=== PATIENT | male | born 1955 | race African-American/Black ===

== ENCOUNTER 2019-01-26 19:39 | Inpatient (IN) | payer OTHER ==
[2019-01-26 20:30] VITALS: BMI 19.1
--- NOTE | 2019-01-26 21:15 | HP ---
CIWA Score Nausea/Vomitin Muscle Tremors: 4-Moderate,w/Arms Extend Anxiety: 3 Agitation: 4-Moderately Restless Paroxysmal Sweats: 2 Orientation: 0-Oriented Tacttile Disturbances: 0-None Auditory Disturbances: 0-None Visual Disturbances: 0-None Headache: 3-Moderate CIWA-Ar Total Score: 18 - Admission Criteria OASAS Guidelines: Admission for Medically Managed Detox: Requires at least one of the followin. CIWA greater than 12 2. Seizures within the past 24 hours 3. Delirium tremens within the past 24 hours 4. Hallucinations within the past 24 hours 5. Acute intervention needed for co occurring medical disorder 6. Acute intervention needed for co occurring psychiatric disorder 7. Severe withdrawal that cannot be handled at a lower level of care (continued vomiting, continued diarrhea, abnormal vital signs) requiring intravenous medication and/or fluids 8. Admission ROS [facility] - [facility] Chief Complaint: Alcohol withdrawal symptoms Allergies/Adverse Reactions: Allergies Allergy/AdvReac Type Severity Reaction Status Date / Time bee venom protein (honey bee) Allergy Verified 01/26/19 20:17 History of Present Illness: 63 years old male with a long history of alcohol dependence (since age 18 years ) is seeking admission to detox. Patient has been in multiple detox facilities and reports that [facility] was where he was treated last. This is his first admission to [facility] detox. Patient reports that he is unemployed and homeless but spend timeat a friend's apartment. He reports history of hypothyroidism, Glaucoma and depression. He reports suicide attempt at age 15 years and denies suicidal ideation at his time. Exam Limitations: No Limitations - Ebola screening Have you traveled outside of the country in the last 21 days: No (N) Have you had contact with anyone from an Ebola affected area: No Do you have a fever: No - Review of Systems Constitutional: Chills, Malaise, Night Sweats, Changes in sleep EENT: reports: Blurred Vision Respiratory: reports: No Symptoms reported Cardiac: reports: No Symptoms Reported GI: reports: Poor Appetite, Poor Fluid Intake, Abdominal cramping : reports: No Symptoms Reported Musculoskeletal: reports: Back Pain Integumentary: reports: Dryness, Flushing Neuro: reports: Tingling, Tremors Endocrine: reports: No Symptoms Reported Hematology: reports: No Symptoms Reported Psychiatric: reports: No Sypmtoms Reported, Mood/Affect Appropiate, Orientated x3, Anxious, Depressed Other Systems: Reviewed and Negative Patient History - Patient Medical History Hx Anemia: No Hx Asthma: No Hx Chronic Obstructive Pulmonary Disease (COPD): No Hx Cardiac Disorders: No Hx Congestive Heart Failure: No Hx Hypertension: No Hx Hypercholesterolemia: No Hx Pacemaker: No HX Cerebrovascular Accident: No Hx Seizures: No Hx Dementia: No Hx Diabetes: No Hx Gastrointestinal Disorders: No Hx Liver Disease: No Hx Genitourinary Disorders: No Hx Renal Disease (ESRD): No Hx Thyroid Disease: Yes (Levothyroidism) Hx Human Immunodeficiency Virus (HIV): No (Negative 2018) Hx Hepatitis C: No Hx Depression: Yes (Not on medication) Hx Suicide Attempt: No (Denies suicidal ideation at tis time) Hx Bipolar Disorder: No Hx Schizophrenia: No - Patient Surgical History Past Surgical History: Yes Hx Lung Surgery: Yes Other Surgical History: RIGHT EYE, RIGHT LEG - PPD History Previous Implant?: Yes Documented Results: Negative w/o proof Implanted On Prior [facility] Admission?: No PPD to be Administered?: Yes - Reproductive History Patient is a Female of Child Bearing Age (11 -55 yrs old): No (male) - Smoking Cessation Smoking history: Current every day smoker Have you smoked in the past 12 months: Yes Aproximately how many cigarettes per day: 5 Hx Chewing Tobacco Use: No Initiated information on smoking cessation: Yes 'Breaking Loose' booklet given: 01/26/19 - Substance & Tx. History Hx Alcohol Use: Yes Hx Substance Use: Yes Substance Use Type: Alcohol, Cocaine, Marijuana Hx Substance Use Treatment: Yes (Pep[facility] CARRILLO) - Substances abused Alcohol Substance route: Oral Frequency: Daily Amount used: 1 pint of liquor(gin,rum,keira) Age of first use: 17 Date of last use: 01/26/19 Crack Substance route: Smoking Frequency: Daily Amount used: 50$-$400 Age of first use: 40 Date of last use: 01/26/19 Heroin Substance route: Smoking Frequency: 1-2 times per week Amount used: 1/2 bag Age of first use: 43 Date of last use: 01/23/19 Admission Physical Exam [facility] - Vital Signs Vital Signs: Vital Signs - 24 hr 01/26/19 20:18 Temperature 97.6 F Pulse Rate 96 H Respiratory 16 Rate Blood Pressure 139/77 - Physical General Appearance: Yes: Moderate Distress, Irritable, Sweating, Anxious HEENTM: Yes: Normal ENT Inspection, JOVANI Respiratory: Yes: Lungs Clear, Normal Breath Sounds, No Respiratory Distress Neck: Yes: Supple Breast: Yes: Breast Exam Deferred Cardiology: Yes: Tachycardia Abdominal: Yes: Normal Bowel Sounds Genitourinary: Yes: Within Normal Limits Back: Yes: Normal Inspection Musculoskeletal: Yes: Back pain, Muscle Pain Extremities: Yes: Tremors Neurological: Yes: Within Normal Limits, Alert, Normal Mood/Affect Integumentary: Yes: Warm Lymphatic: Yes: Within Normal Limits - Diagnostic (1) Hypothyroid Current Visit: Yes Status: Chronic (2) Glaucoma Current Visit: Yes Status: Chronic Qualifiers: Laterality: right (3) Depression Current Visit: Yes Status: Chronic Qualifiers: Depression Type: unspecified Qualified Code(s): F32.9 - Major depressive disorder, single episode, unspecified (4) Nicotine dependence Current Visit: Yes Status: Chronic Qualifiers: Nicotine product type: cigarettes Substance use status: uncomplicated Qualified Code(s): F17.210 - Nicotine dependence, cigarettes, uncomplicated (5) Opioid dependence with withdrawal Current Visit: Yes Status: Acute (6) Cocaine dependence Current Visit: Yes Status: Chronic (7) Cannabis dependence Current Visit: Yes Status: Chronic (8) Alcohol dependence with withdrawal, uncomplicated Current Visit: Yes Status: Acute Cleared for Admission S - Detox or Rehab [facility] Level of Care: Medically Managed Detox Regimen/Protocol: Librium Breathalyzer - Breathalyzer Breathalyzer: 0 Urine Drug Screen - Test Device Lot number: [id number] Expiration date: 09/14/20 - Control Is test valid?: Yes - Results Drug screen NEGATIVE: No Urine drug screen results: THC-Marijuana, ZENOBIA-Cocaine Inpatient Rehab Admission - Rehab Decision to Admit Inpatient rehab admission?: No
[2019-01-26] MEDS ORDERED: METHOCARBAMOL 500 MG TABLET PO PRN (21:28)
[2019-01-26] MEDS ORDERED: MELATONIN 5 MG TABLETS PO PRN (21:28)
[2019-01-26] MEDS ORDERED: hydrOXYzine PAMOATE 25 MG CAPSULE (FP) PO PRN (21:28)
[2019-01-26] MEDS ORDERED: MAG HYDROX/AL HYDROX/SIMETH 30 ML UNIT-DOSE CUP PO PRN (21:28)
[2019-01-26] MEDS ORDERED: BISMUTH SUBSALICYLATE 524 MG/30 ML UD PO PRN (21:28)
[2019-01-26] MEDS ORDERED: NICOTINE POLACRILEX 2 MG GUM BUC PRN (21:28)
[2019-01-26] MEDS ORDERED: MENTHOL/PHENOL 1 EACH UD MM PRN (21:28)
[2019-01-26] MEDS ORDERED: ACETAMINOPHEN 325 MG TABLET (FP) PO PRN ×2 (21:28)
[2019-01-26] MEDS ORDERED: IBUPROFEN 400 MG TABLET (FP) PO PRN (21:28)
[2019-01-26] MEDS ORDERED: chlordiazePOXIDE HCL 10 MG CAPSULE PO PRN (21:28)
[2019-01-26] MEDS ORDERED: MAGNESIUM CITRATE 300 ML BOTTLE PO PRN (21:28)
[2019-01-26] MEDS ORDERED: MAGNESIUM HYDROX 2400MG/30ML ORAL SUSPENSION 30 ML CUP PO PRN (21:28)
[2019-01-26] MEDS: chlordiazePOXIDE HCL 25 MG CAPSULE PO SCH (22:22)
[2019-01-26] MEDS: THIAMINE HCL 100 MG TABLET (FP) PO SCH (22:23)
[2019-01-27] MEDS: chlordiazePOXIDE HCL 25 MG CAPSULE PO SCH ×3 (06:31→23:13)
--- NOTE | 2019-01-27 08:39 | EKG ---
Test Reason : Blood Pressure : / mmHG Vent. Rate : 081 BPM Atrial Rate : 081 BPM P-R Int : 154 ms QRS Dur : 090 ms QT Int : 374 ms P-R-T Axes : 077 082 073 degrees QTc Int : 434 ms SINUS RHYTHM WITH MARKED SINUS ARRHYTHMIA OTHERWISE NORMAL ECG NO PREVIOUS ECGS AVAILABLE Confirmed by Bernie Duque ([id number]) on 01/27/2019 8:38:50 AM Referred By: Eleno Prajapati Confirmed By:Bernie Duque
[2019-01-27] MEDS ORDERED: PRENATAL VITAMINS W/ FOLIC ACID TABLET (FP) PO SCH (10:00)
[2019-01-27] MEDS ORDERED: NICOTINE 14 MG/24 HOURS TOPICAL PATCH TD SCH (10:00)
[2019-01-27 10:25] LABS: HEMOGLOBIN 13.7 GM/dL (11.7-16.9); MCH 28.8 pg (25.7-33.7); MCHC 32.6 g/dl (32.0-35.9); MEAN CELL VOLUME 88.4 fl (80-96); MEAN PLT VOLUME 7.6 fl (7.5-11.1); PLATELET COUNT 408 K/MM3 (134-434); RBC 4.75 M/mm3 (4.00-5.60); RDW 16.7 % (11.9-15.9); WHITE BLOOD COUNT 5.4 K/mm3 (4.0-10.0)
[2019-01-27 10:27] LABS: ALBUMIN 3.5 g/dl (3.4-5.0); BILIRUBIN,TOTAL 0.2 mg/dL (0.2-1); BLOOD UREA NITROGEN 17.5 mg/dL (7-18); CALCIUM 9.1 mg/dL (8.5-10.1); CREATININE 1.2 mg/dL (0.55-1.3); POTASSIUM 4.3 mmol/L (3.5-5.1); TOT PROT 7.1 g/dl (6.4-8.2)
--- NOTE | 2019-01-27 13:48 | PN ---
S CIWA - CIWA Score Nausea/Vomitin-Mild Nausea/No Vomiting Muscle Tremors: 4-Moderate,w/Arms Extend Anxiety: 4-Mod. Anxious/Guarded Agitation: 4-Moderately Restless Paroxysmal Sweats: 3 Orientation: 0-Oriented Tacttile Disturbances: 0-None Auditory Disturbances: 0-None Visual Disturbances: 0-None Headache: 0-None Present CIWA-Ar Total Score: 16 BHS Progress Note (SOAP) Subjective: Headache, chills, tremor, anxious Objective: 01/27/19 13:44 Last Vital Signs Temp Pulse Resp BP Pulse Ox 97.2 F L 104 H 18 126/79 01/27/19 13:19 01/27/19 13:19 01/27/19 13:19 01/27/19 13:19 Laboratory Tests 01/27/19 01/27/19 01/27/19 07:15 07:15 07:15 WBC 5.4 RBC 4.75 Hgb 13.7 Hct 42.0 MCV 88.4 MCH 28.8 MCHC 32.6 RDW 16.7 H Plt Count 408 MPV 7.6 Sodium 141 Potassium 4.3 Chloride 108 H Carbon Dioxide 27 Anion Gap 6 L BUN 17.5 Creatinine 1.2 Est GFR (CKD-EPI)AfAm 74.14 Est GFR (CKD-EPI)NonAf 63.97 Random Glucose 113 H Calcium 9.1 Total Bilirubin 0.2 AST 24 ALT 31 Alkaline Phosphatase 83 Total Protein 7.1 Albumin 3.5 RPR Titer Nonreactive Labs reviewed: mild glucose elevation noted (denies dm/prediabetes) Assessment: 01/27/19 13:45 Withdrawal sxs Noted with mild hyperglycemia Plan: Continue detox Encouraged PO water intake Hyperglycemia: could be r/t withdrawal, encouraged abstinence, monitor glucose level periodically, follow up with PCP for monitoring
[2019-01-27] MEDS: THIAMINE HCL 100 MG TABLET (FP) PO SCH (23:13)
[2019-01-28] MEDS ORDERED: chlordiazePOXIDE 5 MG CAPSULE PO SCH (05:00)
[2019-01-28 07:12] VITALS: TEMP 97.7
[2019-01-28 09:23] VITALS: BP 130/77; PULSE 94
--- NOTE | 2019-01-28 10:41 | DS ---
[facility] Detox Discharge Summary Admission Date: 01/26/19 Discharge Date: 01/28/19 - History Present History: Alcohol Dependence, Opioid Dependence - Physical Exam Results Vital Signs: Vital Signs Temperature 97.7 F 01/28/19 09:22 Pulse Rate 94 H 01/28/19 09:22 Respiratory Rate 18 01/28/19 09:22 Blood Pressure 130/77 01/28/19 09:22 O2 Sat by Pulse Oximetry (%) Pertinent Admission Physical Exam Findings: pt states he was told to say he drinks excessively so he can be admitted. pt admitted he does not drink and he only drinks occasionally. pt refused to take any more librium medication. pt states he can go to the [facility] and they can help him with rehab. Pt will be d/c today; pt in agreement. - Treatment Hospital Course: Rehab Referral Accepted Patient has Accepted a Rehab Referral to: referral provided - Medication Discharge Medications: Ambulatory Orders NK [No Known Home Medication] 01/26/19 - Diagnosis (1) Alcohol dependence with withdrawal, uncomplicated Status: Chronic (2) Opioid dependence with withdrawal Status: Chronic (3) Cannabis dependence Status: Chronic (4) Cocaine dependence Status: Chronic Qualifiers: Substance use status: uncomplicated Qualified Code(s): F14.20 - Cocaine dependence, uncomplicated (5) Depression Status: Chronic Qualifiers: Depression Type: unspecified Qualified Code(s): F32.9 - Major depressive disorder, single episode, unspecified (6) Glaucoma Status: Chronic Qualifiers: Laterality: right (7) Hypothyroid Status: Chronic (8) Nicotine dependence Status: Chronic Qualifiers: Nicotine product type: cigarettes Substance use status: uncomplicated Qualified Code(s): F17.210 - Nicotine dependence, cigarettes, uncomplicated - AMA Did Patient Leave Against Medical Advice: No
[2019-01-29] MEDS ORDERED: chlordiazePOXIDE HCL 10 MG CAPSULE PO PRN
[2019-01-29] MEDS ORDERED: chlordiazePOXIDE HCL 10 MG CAPSULE PO SCH (05:00)
[2019-01-30] MEDS ORDERED: chlordiazePOXIDE HCL 10 MG CAPSULE PO ONE (05:00)
== END 2019-01-28 10:57 | disposition home or self-care (01) | DRG 773 ==
LOC: YASAS 19:39 → Y6N 21:33
PROVIDERS: ADMIT Allergy & Immunology; ATTEND Allergy & Immunology
PROC: HZ2ZZZZ Detoxification Services for Substance Abuse Treatment (ICD-10-PCS; principal; 2019-01-26)
DX: F11.23 Opioid dependence with withdrawal (principal); F10.230 Alcohol dependence with withdrawal, uncomplicated; F14.20 Cocaine dependence, uncomplicated; F12.20 Cannabis dependence, uncomplicated; F17.210 Nicotine dependence, cigarettes, uncomplicated; F32.9 Major depressive disorder, single episode, unspecified; E03.9 Hypothyroidism, unspecified; H40.9 Unspecified glaucoma; R73.9 Hyperglycemia, unspecified; R00.0 Tachycardia, unspecified; Z91.038 Other insect allergy status
CPT/HCPCS: 36415; 80053; 85027; 86593; 93005; 93010

== ENCOUNTER 2019-12-08 21:16 | Inpatient (IN) | payer OTHER ==
[2019-12-08] MEDS ORDERED: MENTHOL/PHENOL 1 EACH UD MM PRN (21:19)
[2019-12-08] MEDS ORDERED: ACETAMINOPHEN 325 MG TABLET (FP) PO PRN ×2 (21:19)
[2019-12-08] MEDS ORDERED: P-EPHED 60MG/TRIPROLIDI 2.5MG TABLET PO PRN (21:19)
[2019-12-08] MEDS ORDERED: MAG HYDROX/AL HYDROX/SIMETH 30 ML UNIT-DOSE CUP PO PRN (21:19)
[2019-12-08] MEDS ORDERED: ONDANSETRON *ODT* 4 MG TABLET SL PRN (21:19)
[2019-12-08] MEDS ORDERED: IBUPROFEN 400 MG TABLET (FP) PO PRN (21:19)
[2019-12-08] MEDS ORDERED: MAGNESIUM CITRATE 300 ML BOTTLE PO PRN (21:19)
[2019-12-08] MEDS ORDERED: METHOCARBAMOL 500 MG TABLET PO PRN (21:19)
[2019-12-08] MEDS ORDERED: BISMUTH SUBSALICYLATE 524 MG/30 ML UD PO PRN (21:19)
[2019-12-08] MEDS ORDERED: NICOTINE POLACRILEX 2 MG GUM BUC PRN (21:19)
[2019-12-08] MEDS ORDERED: chlordiazePOXIDE HCL 10 MG CAPSULE PO PRN (21:19)
[2019-12-08] MEDS ORDERED: MAGNESIUM HYDROX 2400MG/30ML ORAL SUSPENSION 30 ML CUP PO PRN (21:19)
[2019-12-08] MEDS ORDERED: guaiFENesin 200 MG/10 ML 10 ML UNIT-DOSE CUPS PO PRN (21:19)
[2019-12-08] MEDS ORDERED: DICYCLOMINE HCL 10 MG CAPSULE PO PRN (21:19)
--- NOTE | 2019-12-08 21:26 | HP ---
CIWA Score Nausea/Vomitin-Mild Nausea/No Vomiting Muscle Tremors: 1-None Visible, but [place] Anxiety: 4-Mod. Anxious/Guarded Agitation: 4-Moderately Restless Paroxysmal Sweats: 4-Forehead w/Sweat Beads Orientation: 1-Uncertain about Date Tacttile Disturbances: 0-None Auditory Disturbances: 0-None Visual Disturbances: 0-None Headache: 0-None Present CIWA-Ar Total Score: 15 - Admission Criteria OASAS Guidelines: Admission for Medically Managed Detox: Requires at least one of the followin. CIWA greater than 12 2. Seizures within the past 24 hours 3. Delirium tremens within the past 24 hours 4. Hallucinations within the past 24 hours 5. Acute intervention needed for co occurring medical disorder 6. Acute intervention needed for co occurring psychiatric disorder 7. Severe withdrawal that cannot be handled at a lower level of care (continued vomiting, continued diarrhea, abnormal vital signs) requiring intravenous medication and/or fluids 8. Patient presents the following: CIWA greater than 12 Admission Criteria Met: Admission criteria met Admitting History and Physical - Smoking History Smoking history: Current every day smoker Have you smoked in the past 12 months: Yes Aproximately how many cigarettes per day: 5 - Alcohol/Substance Use Hx Alcohol Use: Yes Admission ROS [facility] - HPI Chief Complaint: WANTS TO STOP DRINKING SEEKING DETOX Allergies/Adverse Reactions: Allergies Allergy/AdvReac Type Severity Reaction Status Date / Time bee venom protein (honey bee) Allergy Verified 12/08/19 21:50 History of Present Illness: hwere for alcohol detox. client is self referred. known to [facility] on [facility]29[facility]20. presents today with c/o withdrawal sx's. seeking detox. client reports daily alcohol intake. 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 client reports last drink about 1 hour ago due to feeling sick. denies any significant period of clean time in the past year. he also reports cannabis abuse and crack, cocaine abuse. homeless- [facility], unemployed, parole Exam Limitations: No Limitations - Ebola screening Have you traveled outside of the country in the last 21 days: No Have you had contact with anyone from an Ebola affected area: No Have you been sick,other than usual withdrawal symptoms: No Do you have a fever: No - Review of Systems Constitutional: Chills, Loss of Appetite, Night Sweats, Changes in sleep, Unintentional Wgt. Loss EENT: reports: Dental Problems (missing teeth), Other (glaucoma both eyes) Respiratory: reports: No Symptoms reported Cardiac: reports: No Symptoms Reported GI: reports: Nausea, Poor Appetite, Poor Fluid Intake : reports: No Symptoms Reported Musculoskeletal: reports: Joint Pain (right hip, thigh and knee pain, chronic 2/2 to old injury) Integumentary: reports: Sweating, Other (healing abrasion to r elbow) Neuro: reports: Tremors Endocrine: reports: Other (hypothyroidism) Hematology: reports: No Symptoms Reported Psychiatric: reports: Orientated x3, Anxious, Depressed (emotions) Other Systems: Reviewed and Negative Patient History - Patient Medical History Hx Anemia: No Hx Asthma: No Hx Chronic Obstructive Pulmonary Disease (COPD): No Hx Cardiac Disorders: No Hx Congestive Heart Failure: No Hx Hypertension: No Hx Hypercholesterolemia: Yes (lipitor) Hx Pacemaker: No HX Cerebrovascular Accident: No Hx Seizures: No Hx Dementia: No Hx Diabetes: No Hx Gastrointestinal Disorders: No Hx Liver Disease: No Hx Genitourinary Disorders: No Hx Sexually Transmitted Disorders: No Hx Renal Disease (ESRD): No Hx Thyroid Disease: Yes (levothyroxine) Hx Human Immunodeficiency Virus (HIV): No Hx Hepatitis C: No Hx Depression: Yes (Not on medication) Hx Suicide Attempt: No Hx Bipolar Disorder: No Hx Schizophrenia: No Other Medical History: mood swings, insomnia - Patient Surgical History Past Surgical History: Yes Hx Neurologic Surgery: No Hx Cataract Extraction: Yes Hx Cardiac Surgery: No Hx Lung Surgery: Yes Hx Breast Surgery: No Hx Breast Biopsy: No Hx Abdominal Surgery: No Hx Appendectomy: No Hx Cholecystectomy: No Hx Genitourinary Surgery: No Hx Section: No Hx Orthopedic Surgery: Yes Other Surgical History: RIGHT EYE, RIGHT LEG Anesthesia Reaction: No - PPD History Previous Implant?: Yes Documented Results: Negative w/proof Implanted On Prior R Admission?: Yes Date: 01/28/19 Results: s/o ama PPD to be Administered?: Yes - Smoking Cessation Smoking history: Current every day smoker Have you smoked in the past 12 months: Yes Aproximately how many cigarettes per day: 5 Cigars Per Day: 0 Hx Chewing Tobacco Use: No Initiated information on smoking cessation: Yes 'Breaking Loose' booklet given: 12/08/19 - Substance & Tx. History Hx Alcohol Use: Yes Hx Substance Use: Yes Substance Use Type: Alcohol Hx Substance Use Treatment: Yes (humaira owen) - Substances abused Alcohol Other (specify): beer/liquor Substance route: Oral Frequency: Daily Amount used: 6- 24oz cans/ 3 nips Age of first use: 18 Date of last use: 12/08/19 Cocaine Substance route: Inhalation Frequency: Daily Amount used: $100 Age of first use: 21 Date of last use: 12/08/19 Marijuana/Hashish Substance route: Smoking Frequency: Daily Amount used: 1/2 ounce and more Age of first use: 18 Date of last use: 10/16/19 [facility] - Physical General Appearance: Yes: Mild Distress, Thin, Tremorous (felt), Sweating, Anxious HEENTM: Yes: EOMI, Normocephalic, Normal Voice, JOVANI, Pharynx Normal, Other (poor dentition missing teeth) Respiratory: Yes: Chest Non-Tender, Lungs Clear, Normal Breath Sounds, No Respiratory Distress, No Accessory Muscle Use Neck: Yes: No masses,lesions,Nodules, Supple, Trachea in good position Breast: Yes: Breasts Symetrical Cardiology: Yes: Regular Rhythm, Regular Rate, S1, S2 Abdominal: Yes: Normal Bowel Sounds, Non Tender, Soft Genitourinary: Yes: Within Normal Limits Back: Yes: Normal Inspection Musculoskeletal: Yes: full range of Motion, Gait Steady, Other (r leg c/o chronic pain to hip thigh and knee, 2/2 old injury. states was xrayed at [facility] with negative findings. sx scar noted) Extremities: Yes: Tremors Neurological: Yes: Fully Oriented, Alert, Motor Strength 5/5, Depressed Affect Integumentary: Yes: Warm, Clammy Lymphatic: Yes: Within Normal Limits - Diagnostic (1) Homeless Current Visit: Yes Status: Acute (2) HLD (hyperlipidemia) Current Visit: Yes Status: Acute Qualifiers: Hyperlipidemia type: unspecified Qualified Code(s): E78.5 - Hyperlipidemia, unspecified (3) Arcus senilis of both eyes Current Visit: Yes Status: Chronic (4) Substance induced mood disorder Current Visit: Yes Status: Chronic (5) Alcohol dependence with withdrawal, uncomplicated Current Visit: Yes Status: Acute (6) Cocaine dependence Current Visit: Yes Status: Acute Qualifiers: Substance use status: uncomplicated Qualified Code(s): F14.20 - Cocaine dependence, uncomplicated (7) Glaucoma Current Visit: Yes Status: Chronic Qualifiers: Glaucoma type: unspecified Laterality: bilateral Qualified Code(s): H40.9 - Unspecified glaucoma (8) Nicotine dependence Current Visit: Yes Status: Chronic Qualifiers: Nicotine product type: cigarettes Substance use status: uncomplicated Qualified Code(s): F17.210 - Nicotine dependence, cigarettes, uncomplicated (9) Depressed affect Current Visit: Yes Status: Acute (10) Poor dentition Current Visit: Yes Status: Chronic Comment: missing teeth (11) Hypothyroid Current Visit: Yes Status: Chronic Qualifiers: Hypothyroidism type: unspecified Qualified Code(s): E03.9 - Hypothyroidism, unspecified (12) Right thigh pain Current Visit: Yes Status: Chronic (13) Non compliance w medication regimen Current Visit: Yes Status: Suspected Cleared for Admission S - [facility]ox [facility] Level of Care: Medically Managed Detox Regimen/Protocol: Librium Claeared for Rehab Admission: No Breathalyzer - Breathalyzer Breathalyzer: 0 Urine Drug Screen - Test Device Lot number: [id number] Expiration date: 09/14/20 - Control Is test valid?: Yes - Results Drug screen NEGATIVE: No Urine drug screen results: THC-Marijuana, ZENOBIA-Cocaine Inpatient Rehab Admission - Rehab Decision to Admit Inpatient rehab admission?: No
[2019-12-08 22:11] VITALS: BMI 20.8
[2019-12-08] MEDS ORDERED: METHYL SALICYLATE/MENTHOL OINT 30 GM TUBE TP PRN (22:36)
[2019-12-08] MEDS ORDERED: IBUPROFEN 600 MG TABLET (FP) PO PRN (22:38)
[2019-12-08] MEDS: MELATONIN 5 MG TABLETS PO SCH (23:10)
[2019-12-08] MEDS: THIAMINE HCL 100 MG TABLET (FP) PO SCH (23:10)
[2019-12-08] MEDS: chlordiazePOXIDE HCL 25 MG CAPSULE PO SCH (23:10)
[2019-12-09] MEDS: chlordiazePOXIDE HCL 25 MG CAPSULE PO SCH ×3 (05:47→22:32)
[2019-12-09] MEDS: LEVOTHYROXINE NA 75 MCG TABLET (FP) PO SCH (06:53)
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
--- NOTE | 2019-12-09 09:33 | PN ---
S CIWA - CIWA Score Nausea/Vomitin-No Nausea/No Vomiting Muscle Tremors: 2 Anxiety: 3 Agitation: 0-Normal Activity Paroxysmal Sweats: 3 Orientation: 0-Oriented Tacttile Disturbances: 0-None Auditory Disturbances: 0-None Visual Disturbances: 0-None Headache: 2-Mild CIWA-Ar Total Score: 10 BHS Progress Note (SOAP) Subjective: c/o sweats, anxiety, shakes, and headache. Objective: 12/09/19 09:34 Vital Signs 12/09/19 12/09/19 05:39 09:10 Temperature 97.8 F 97.7 F Pulse Rate 77 83 Respiratory 18 18 Rate Blood Pressure 137/85 129/73 O2 Sat by Pulse 96 Oximetry (%) Labs pending. Assessment: AOX3 and in no acute respiratory. Full ROM, ambulating in the unit. Withdrawal symptoms. Plan: continue detox.
[2019-12-09] MEDS ORDERED: SERTRALINE HCL 50 MG TABLET (FP) PO SCH (10:00)
[2019-12-09] MEDS ORDERED: NICOTINE 14 MG/24 HOURS TOPICAL PATCH TD SCH (10:00)
[2019-12-09] MEDS ORDERED: PRENATAL VITAMINS W/ FOLIC ACID TABLET (FP) PO SCH (10:00)
[2019-12-09] MEDS ORDERED: LORATADINE 10 MG TABLET PO SCH (10:00)
[2019-12-09 10:46] LABS: HEMOGLOBIN 11.5 GM/dL (11.7-16.9); MCH 29.7 pg (25.7-33.7); WHITE BLOOD COUNT 5.3 K/mm3 (4.0-10.0)
[2019-12-09 10:50] LABS: MCHC 32.9 g/dl (32.0-35.9); MEAN CELL VOLUME 90.1 fl (80-96); MEAN PLT VOLUME 8.2 fl (7.5-11.1); PLATELET COUNT 277 K/MM3 (134-434); RBC 3.89 M/mm3 (4.00-5.60); RDW 15.5 % (11.9-15.9)
[2019-12-09 10:51] LABS: ALBUMIN 3.2 g/dl (3.4-5.0); BILIRUBIN,TOTAL 0.4 mg/dL (0.2-1); BLOOD UREA NITROGEN 19.9 mg/dL (7-18); CALCIUM 8.8 mg/dL (8.5-10.1); CREATININE 1.1 mg/dL (0.55-1.3); POTASSIUM 3.5 mmol/L (3.5-5.1); TOT PROT 6.8 g/dl (6.4-8.2)
[2019-12-09 18:06] LABS: URINE APPEARANCE CLEAR; URINE BILIRUBIN NEGATIVE (NEGATIVE); URINE COLOR YELLOW; URINE GLUCOSE (UA) NEGATIVE (NEGATIVE); URINE KETONE TRACE (NEGATIVE); URINE LEUK ESTERASE NEGATIVE (NEGATIVE); URINE NITRITE NEGATIVE (NEGATIVE); URINE PROTEIN NEGATIVE (NEGATIVE); URINE UROBILINOGEN 0.2 mg/dL (0.2-1.0)
--- NOTE | 2019-12-09 18:27 | EKG ---
Test Reason : Blood Pressure : / mmHG Vent. Rate : 077 BPM Atrial Rate : 077 BPM P-R Int : 142 ms QRS Dur : 090 ms QT Int : 408 ms P-R-T Axes : 077 079 074 degrees QTc Int : 461 ms NORMAL SINUS RHYTHM POSSIBLE LEFT ATRIAL ENLARGEMENT BORDERLINE ECG WHEN COMPARED WITH ECG OF 26-JAN-2019 21:46, NO SIGNIFICANT CHANGE WAS FOUND Confirmed by BILL CASTRO MD ([id number]) on 12/09/2019 6:27:06 PM Referred By: Confirmed By:BILL CASTRO MD
[2019-12-09] MEDS ORDERED: ATORVASTATIN CA 10 MG TABLET (FP) PO SCH (22:00)
[2019-12-09] MEDS ORDERED: traZODone HCL 50 MG TABLET (FP) PO PRN (22:00)
[2019-12-09] MEDS ORDERED: LATANOPROST 0.005% OPHTH SOLN 2.5ML BOTTLE OU SCH (22:00)
[2019-12-09] MEDS ORDERED: DIVALPROEX NA *ER* EXTEND REL 500 MG TABLET.SA (FP) PO SCH (22:00)
[2019-12-09] MEDS: MELATONIN 5 MG TABLETS PO SCH (22:32)
[2019-12-09] MEDS: THIAMINE HCL 100 MG TABLET (FP) PO SCH (22:32)
[2019-12-09 22:49] VITALS: PULSE 60
[2019-12-10] MEDS ORDERED: chlordiazePOXIDE 5 MG CAPSULE PO SCH (05:00)
[2019-12-10] MEDS: LEVOTHYROXINE NA 75 MCG TABLET (FP) PO SCH (06:59)
[2019-12-10 07:24] VITALS: BP 111/68; TEMP 98
--- NOTE | 2019-12-10 10:45 | DS ---
[facility] Detox Discharge Summary Admission Date: 12/08/19 Discharge Date: 12/10/19 (Pt left AMA) - History Present History: Alcohol Dependence, Cannabis Dependence, Cocaine Dependence Additional Comments: Pt left AMA. Pt did not complete the detox protocol. Pt states, "i got things to do". An attempt to let pt stay and complete the detox protocol failed. Pt is encouraged to follow-up with an outpatient CD program and also to follow-up with his pmd which he verbalized understanding. Pt is AOX3, in no acute respiratory distress, Full ROM, and ambulatory. Pertinent Past History: h/o alcohol, cocaine, and cannabis use disorder. - Physical Exam Results Vital Signs: Vital Signs Temperature 98 F 12/10/19 07:24 Pulse Rate 60 12/10/19 07:24 Respiratory Rate 18 12/10/19 07:24 Blood Pressure 111/68 12/10/19 07:24 O2 Sat by Pulse Oximetry (%) 97 12/10/19 07:24 Vital Signs 12/10/19 07:24 Temperature 98 F Pulse Rate 60 Respiratory 18 Rate Blood Pressure 111/68 O2 Sat by Pulse 97 Oximetry (%) Laboratory Last Values WBC 5.3 K/mm3 (4.0-10.0) 12/09/19 07:45 RBC 3.89 M/mm3 (4.00-5.60) L 12/09/19 07:45 Hgb 11.5 GM/dL (11.7-16.9) L 12/09/19 07:45 Hct 35.0 % (35.4-49) L D 12/09/19 07:45 MCV 90.1 fl (80-96) 12/09/19 07:45 MCH 29.7 pg (25.7-33.7) 12/09/19 07:45 MCHC 32.9 g/dl (32.0-35.9) 12/09/19 07:45 RDW 15.5 % (11.9-15.9) 12/09/19 07:45 Plt Count 277 K/MM3 (134-434) D 12/09/19 07:45 MPV 8.2 fl (7.5-11.1) 12/09/19 07:45 Sodium 146 mmol/L (136-145) H 12/09/19 07:45 Potassium 3.5 mmol/L (3.5-5.1) 12/09/19 07:45 Chloride 110 mmol/L (98-107) H 12/09/19 07:45 Carbon Dioxide 30 mmol/L (21-32) 12/09/19 07:45 Anion Gap 6 MMOL/L (8-16) L 12/09/19 07:45 BUN 19.9 mg/dL (7-18) H 12/09/19 07:45 Creatinine 1.1 mg/dL (0.55-1.3) 12/09/19 07:45 Est GFR (CKD-EPI)AfAm 81.79 12/09/19 07:45 Est GFR (CKD-EPI)NonAf 70.57 12/09/19 07:45 Random Glucose 95 mg/dL (74-106) 12/09/19 07:45 Calcium 8.8 mg/dL (8.5-10.1) 12/09/19 07:45 Total Bilirubin 0.4 mg/dL (0.2-1) 12/09/19 07:45 AST 29 U/L (15-37) 12/09/19 07:45 ALT 26 U/L (13-61) 12/09/19 07:45 Alkaline Phosphatase 77 U/L (45-117) 12/09/19 07:45 Total Protein 6.8 g/dl (6.4-8.2) 12/09/19 07:45 Albumin 3.2 g/dl (3.4-5.0) L 12/09/19 07:45 Urine Color Yellow 12/09/19 15:29 Urine Appearance Clear 12/09/19 15:29 Urine pH 6.0 (5.0-8.0) 12/09/19 15:29 Ur Specific [place] 1.023 (1.010-1.035) 12/09/19 15:29 Urine Protein Negative (NEGATIVE) 12/09/19 15:29 Urine Glucose (UA) Negative (NEGATIVE) 12/09/19 15:29 Urine Ketones Trace (NEGATIVE) H 12/09/19 15:29 Urine Blood Negative (NEGATIVE) 12/09/19 15:29 Urine Nitrite Negative (NEGATIVE) 12/09/19 15:29 Urine Bilirubin Negative (NEGATIVE) 12/09/19 15:29 Urine Urobilinogen 0.2 mg/dL (0.2-1.0) 12/09/19 15:29 Ur Leukocyte Esterase Negative (NEGATIVE) 12/09/19 15:29 Valproic Acid 23.5 ug/mL (50-100) L 12/09/19 09:50 Syphilis Serology Non-reactive (NONREACTIVE) 12/09/19 07:45 Labs noted. Pertinent Admission Physical Exam Findings: withdrawal symptoms. - Treatment Hospital Course: Detox Protocol Followed - Medication Discharge Medications: Ambulatory Orders Acetaminophen 650 mg PO PRN 12/08/19 Atorvastatin Ca [Lipitor] 10 mg PO HS 12/08/19 Diphenhydramine HCl [Nighttime Sleep Aid] 50 mg PO PRN 12/08/19 Divalproex *ER* [Depakote *ER* -] 1,500 mg PO DAILY 12/08/19 Dorzolamide HCl/Pf [Dorzolamide 2% Eye Drop] 10 ml OD DAILY 12/08/19 Ibuprofen 400 mg PO PRN 12/08/19 Latanoprost 0.005% Eye Drops [Xalatan 0.005% Eye Drops -] 1 drop OU HS 12/08/19 Levothyroxine [Synthroid -] 75 mcg PO DAILY 12/08/19 Loratadine 10 mg PO DAILY 12/08/19 Sertraline HCl [Zoloft] 200 mg PO DAILY 12/08/19 traZODone HCL [Trazodone HCl] 50 mg PO PRN 12/08/19 - Diagnosis (1) Alcohol dependence with withdrawal, uncomplicated Current Visit: Yes Status: Acute (2) Cocaine dependence Current Visit: Yes Status: Chronic Qualifiers: Substance use status: uncomplicated Qualified Code(s): F14.20 - Cocaine dependence, uncomplicated (3) HLD (hyperlipidemia) Current Visit: Yes Status: Chronic Qualifiers: Hyperlipidemia type: unspecified Qualified Code(s): E78.5 - Hyperlipidemia, unspecified (4) Cannabis dependence Current Visit: No Status: Chronic (5) Hypothyroid Current Visit: Yes Status: Chronic Qualifiers: Hypothyroidism type: unspecified Qualified Code(s): E03.9 - Hypothyroidism, unspecified (6) Nicotine dependence Current Visit: Yes Status: Chronic Qualifiers: Nicotine product type: cigarettes Substance use status: uncomplicated Qualified Code(s): F17.210 - Nicotine dependence, cigarettes, uncomplicated - AMA Did Patient Leave Against Medical Advice: Yes
[2019-12-11] MEDS ORDERED: chlordiazePOXIDE HCL 10 MG CAPSULE PO PRN
[2019-12-11] MEDS ORDERED: chlordiazePOXIDE HCL 10 MG CAPSULE PO SCH (05:00)
[2019-12-12] MEDS ORDERED: chlordiazePOXIDE HCL 10 MG CAPSULE PO ONE (05:00)
== END 2019-12-10 09:42 | disposition left against medical advice (07) | DRG 770 ==
LOC: YASAS 21:16 → Y6N 21:40
PROVIDERS: ADMIT Allergy & Immunology; ATTEND Allergy & Immunology
PROC: HZ2ZZZZ Detoxification Services for Substance Abuse Treatment (ICD-10-PCS; principal; 2019-12-08)
DX: F10.230 Alcohol dependence with withdrawal, uncomplicated (principal); F14.20 Cocaine dependence, uncomplicated; F12.20 Cannabis dependence, uncomplicated; F17.220 Nicotine dependence, chewing tobacco, uncomplicated; F19.282 Other psychoactive substance dependence with psychoactive substance-induced sleep disorder; F19.24 Other psychoactive substance dependence with psychoactive substance-induced mood disorder; F43.10 Post-traumatic stress disorder, unspecified; F31.9 Bipolar disorder, unspecified; E78.5 Hyperlipidemia, unspecified; E03.9 Hypothyroidism, unspecified; H40.9 Unspecified glaucoma; H18.413 Arcus senilis, bilateral; Z62.810 Personal history of physical and sexual abuse in childhood; Z98.890 Other specified postprocedural states; Z56.0 Unemployment, unspecified; Z59.0 Homelessness
CPT/HCPCS: 36415; 80053; 80164; 81003; 85027; 86780; 93005; 93010; U0003

== ENCOUNTER 2020-07-04 11:22 | Inpatient (IN) | payer OTHER ==
[2020-07-04 11:48] VITALS: BMI 20.9
[2020-07-04] MEDS ORDERED: ONDANSETRON *ODT* 4 MG TABLET SL PRN (13:38)
[2020-07-04] MEDS ORDERED: MAG HYDROX/AL HYDROX/SIMETH 30 ML UNIT-DOSE CUP PO PRN (13:38)
[2020-07-04] MEDS ORDERED: MENTHOL/PHENOL 1 EACH UD MM PRN (13:38)
[2020-07-04] MEDS ORDERED: chlordiazePOXIDE HCL 25 MG CAPSULE PO ONE (13:38)
[2020-07-04] MEDS ORDERED: IBUPROFEN 400 MG TABLET (FP) PO PRN (13:38)
[2020-07-04] MEDS ORDERED: chlordiazePOXIDE HCL 25 MG CAPSULE PO PRN (13:38)
[2020-07-04] MEDS ORDERED: MAGNESIUM HYDROX 2400MG/30ML ORAL SUSPENSION 30 ML CUP PO PRN (13:38)
[2020-07-04] MEDS ORDERED: MAGNESIUM CITRATE 300 ML BOTTLE PO PRN (13:38)
[2020-07-04] MEDS ORDERED: METHOCARBAMOL 500 MG TABLET PO PRN (13:38)
[2020-07-04] MEDS ORDERED: BISMUTH SUBSALICYLATE 524 MG/30 ML UD PO PRN (13:38)
[2020-07-04] MEDS ORDERED: ACETAMINOPHEN 325 MG TABLET (FP) PO PRN ×2 (13:38)
[2020-07-04] MEDS ORDERED: LIDOCAINE 5% TOPICAL PATCH TP PRN (13:39)
[2020-07-04] MEDS ORDERED: METHYL SALICYLATE/MENTHOL OINT 30 GM TUBE TP PRN (13:39)
[2020-07-04] MEDS ORDERED: IBUPROFEN 400 MG TABLET (FP) PO ONE (15:02)
[2020-07-04] MEDS ORDERED: chlordiazePOXIDE HCL 25 MG CAPSULE ONE (15:02)
[2020-07-04] MEDS: chlordiazePOXIDE HCL 25 MG CAPSULE PO SCH ×2 (18:36→22:07)
[2020-07-04] MEDS: PRENATAL VITAMINS W/ FOLIC ACID TABLET (FP) PO SCH (18:38)
[2020-07-04] MEDS: hydrOXYzine PAMOATE 25 MG CAPSULE (FP) PO SCH ×3 (18:38→22:07)
[2020-07-04] MEDS ORDERED: THIAMINE HCL 100 MG TABLET (FP) PO SCH (22:00)
[2020-07-04] MEDS ORDERED: LIDOCAINE PATCH REMOVAL MC SCH (22:00)
[2020-07-04] MEDS ORDERED: LATANOPROST 0.005% OPHTH SOLN 2.5ML BOTTLE OU SCH (22:00)
[2020-07-04] MEDS ORDERED: ATORVASTATIN CA 10 MG TABLET (FP) PO SCH (22:00)
[2020-07-04] MEDS ORDERED: traZODone HCL 50 MG TABLET (FP) PO SCH (22:00)
[2020-07-04] MEDS ORDERED: MELATONIN 5 MG TABLETS PO SCH (22:00)
[2020-07-04] MEDS: LEVOTHYROXINE NA 75 MCG TABLET (FP) PO SCH (22:07)
[2020-07-04] MEDS: DORZOLAMIDE 2% HCL OPHTHALMIC SOLUTION 10 ML BOTTLE OD SCH (22:10)
[2020-07-05] MEDS: chlordiazePOXIDE HCL 25 MG CAPSULE PO SCH ×2 (05:50→10:29)
[2020-07-05] MEDS: hydrOXYzine PAMOATE 25 MG CAPSULE (FP) PO SCH ×3 (05:50→13:17)
[2020-07-05] MEDS ORDERED: SERTRALINE HCL 50 MG TABLET (FP) PO SCH (10:00)
[2020-07-05] MEDS ORDERED: SELENIUM SULFIDE 2.25% 180 ML SHAMPOO TP SCH (10:00)
[2020-07-05] MEDS: PRENATAL VITAMINS W/ FOLIC ACID TABLET (FP) PO SCH (10:28)
[2020-07-05] MEDS: LEVOTHYROXINE NA 75 MCG TABLET (FP) PO SCH (10:28)
[2020-07-05] MEDS: DORZOLAMIDE 2% HCL OPHTHALMIC SOLUTION 10 ML BOTTLE OD SCH (10:29)
[2020-07-05 11:29] LABS: POTASSIUM 3.8 mmol/L (3.5-5.1)
[2020-07-05 11:32] LABS: HEMATOCRIT 38.9 % (35.4-49); MCH 30.1 pg (25.7-33.7); MCHC 33.5 g/dl (32.0-35.9); MEAN CELL VOLUME 90.1 fl (80-96); MEAN PLT VOLUME 8.1 fl (7.5-11.1); PLATELET COUNT 311 K/MM3 (134-434); RBC 4.32 M/mm3 (4.00-5.60); RDW 14.8 % (11.9-15.9); WHITE BLOOD COUNT 5.6 K/mm3 (4.0-10.0)
[2020-07-05 11:34] LABS: ALBUMIN 3.2 g/dl (3.4-5.0); CALCIUM 8.5 mg/dL (8.5-10.1)
[2020-07-05 11:35] LABS: BLOOD UREA NITROGEN 16.5 mg/dL (7-18)
[2020-07-05 11:38] LABS: CREATININE 0.9 mg/dL (0.55-1.3)
[2020-07-05 11:39] LABS: BILIRUBIN,TOTAL 0.4 mg/dL (0.2-1); TOT PROT 6.7 g/dl (6.4-8.2)
[2020-07-05 12:26] LABS: HIV INTERPRETATION NEGATIVE (NEGATIVE)
[2020-07-05 13:09] VITALS: BP 99/65; PULSE 66; TEMP 97.7
[2020-07-06] MEDS ORDERED: chlordiazePOXIDE HCL 25 MG CAPSULE PO SCH (05:00)
[2020-07-07] MEDS ORDERED: chlordiazePOXIDE HCL 10 MG CAPSULE PO PRN
[2020-07-07] MEDS ORDERED: chlordiazePOXIDE HCL 10 MG CAPSULE PO SCH (05:00)
[2020-07-08] MEDS ORDERED: chlordiazePOXIDE HCL 10 MG CAPSULE PO SCH (05:00)
[2020-07-09] MEDS ORDERED: chlordiazePOXIDE HCL 10 MG CAPSULE PO ONE (05:00)
== END 2020-07-05 17:10 | disposition left against medical advice (07) | DRG 770 ==
LOC: YASAS 11:22 → Y3N 15:56
PROVIDERS: ADMIT Allergy & Immunology; ATTEND Allergy & Immunology
PROC: HZ2ZZZZ Detoxification Services for Substance Abuse Treatment (ICD-10-PCS; principal; 2020-07-04)
DX: F10.230 Alcohol dependence with withdrawal, uncomplicated (principal); F14.20 Cocaine dependence, uncomplicated; F17.210 Nicotine dependence, cigarettes, uncomplicated; F19.282 Other psychoactive substance dependence with psychoactive substance-induced sleep disorder; F19.24 Other psychoactive substance dependence with psychoactive substance-induced mood disorder; F31.9 Bipolar disorder, unspecified; F43.10 Post-traumatic stress disorder, unspecified; E78.5 Hyperlipidemia, unspecified; E03.9 Hypothyroidism, unspecified; G47.00 Insomnia, unspecified; M17.12 Unilateral primary osteoarthritis, left knee; M54.5 Low back pain; G89.29 Other chronic pain; H40.9 Unspecified glaucoma; H18.413 Arcus senilis, bilateral; H26.9 Unspecified cataract; K08.89 Other specified disorders of teeth and supporting structures; Z98.890 Other specified postprocedural states
CPT/HCPCS: 36415; 80053; 80164; 85027; 86780; 87389; C9803; U0003

== ENCOUNTER 2020-10-18 10:21 | Inpatient (IN) | payer OTHER ==
[2020-10-18 11:21] VITALS: BMI 22.4
[2020-10-18] MEDS ORDERED: MAG HYDROX/AL HYDROX/SIMETH 30 ML UNIT-DOSE CUP PO PRN (13:09)
[2020-10-18] MEDS ORDERED: diazePAM 5 MG TABLET PO PRN (13:09)
[2020-10-18] MEDS ORDERED: NICOTINE POLACRILEX 2 MG GUM BUC PRN (13:09)
[2020-10-18] MEDS ORDERED: MAGNESIUM CITRATE 300 ML BOTTLE PO PRN (13:09)
[2020-10-18] MEDS ORDERED: IBUPROFEN 400 MG TABLET (FP) PO PRN ×2 (13:09)
[2020-10-18] MEDS ORDERED: ONDANSETRON *ODT* 4 MG TABLET SL PRN (13:09)
[2020-10-18] MEDS ORDERED: METHOCARBAMOL 500 MG TABLET PO PRN (13:09)
[2020-10-18] MEDS ORDERED: MENTHOL/PHENOL 1 EACH UD MM PRN (13:09)
[2020-10-18] MEDS ORDERED: ACETAMINOPHEN 325 MG TABLET (FP) PO PRN ×2 (13:09)
[2020-10-18] MEDS ORDERED: BISMUTH SUBSALICYLATE 524 MG/30 ML PO PRN (13:09)
[2020-10-18] MEDS ORDERED: MAGNESIUM HYDROX 2400MG/30ML ORAL SUSPENSION 30 ML CUP PO PRN (13:09)
[2020-10-18] MEDS: IBUPROFEN 400 MG TABLET (FP) PO PRN ×2 (13:30→20:44)
[2020-10-18] MEDS: diazePAM 5 MG TABLET PO SCH ×2 (17:51→22:30)
[2020-10-18] MEDS: hydrOXYzine PAMOATE 25 MG CAPSULE (FP) PO SCH ×3 (17:54→22:29)
[2020-10-18] MEDS: LATANOPROST 0.005% OPHTH SOLN 2.5ML BOTTLE OU SCH (22:29)
[2020-10-18] MEDS: ATORVASTATIN CA 10 MG TABLET (FP) PO SCH (22:29)
[2020-10-18] MEDS: THIAMINE HCL 100 MG TABLET (FP) PO SCH (22:29)
[2020-10-18] MEDS: MELATONIN 5 MG TABLETS PO SCH (22:34)
[2020-10-19] MEDS: diazePAM 5 MG TABLET PO SCH ×4 (06:03→22:48)
[2020-10-19] MEDS: LEVOTHYROXINE NA 75 MCG TABLET (FP) PO SCH (06:04)
[2020-10-19] MEDS: hydrOXYzine PAMOATE 25 MG CAPSULE (FP) PO SCH ×2 (06:04→10:28)
[2020-10-19] MEDS: PRENATAL VITAMINS W/ FOLIC ACID TABLET (FP) PO SCH (10:30)
[2020-10-19] MEDS: NICOTINE 7 MG/24 HOURS TOPICAL PATCH TD SCH (10:30)
[2020-10-19] MEDS ORDERED: COVID-19 VAC,AD26(JANSSEN)/PF 0.5 ML IM ONE (11:00)
[2020-10-19] MEDS ORDERED: hydrOXYzine PAMOATE 25 MG CAPSULE (FP) PO PRN (11:31)
[2020-10-19] MEDS ORDERED: LIDOCAINE VISCOUS 2% ORAL/TOP 20 ML UNIT-DOSE CUP MM PRN (11:31)
[2020-10-19] MEDS: THIAMINE HCL 100 MG TABLET (FP) PO SCH (22:47)
[2020-10-19] MEDS: ATORVASTATIN CA 10 MG TABLET (FP) PO SCH (22:47)
[2020-10-19] MEDS: DIVALPROEX SODIUM 500 MG TABLET E.C. PO SCH (22:47)
[2020-10-19] MEDS: MELATONIN 5 MG TABLETS PO SCH (22:48)
[2020-10-19] MEDS: LATANOPROST 0.005% OPHTH SOLN 2.5ML BOTTLE OU SCH (22:48)
[2020-10-20] MEDS: diazePAM 5 MG TABLET PO SCH ×3 (05:23→23:05)
[2020-10-20] MEDS: LEVOTHYROXINE NA 75 MCG TABLET (FP) PO SCH (06:11)
[2020-10-20] MEDS: PRENATAL VITAMINS W/ FOLIC ACID TABLET (FP) PO SCH (10:29)
[2020-10-20] MEDS: SERTRALINE HCL 50 MG TABLET (FP) PO SCH (10:30)
[2020-10-20] MEDS: NICOTINE 7 MG/24 HOURS TOPICAL PATCH TD SCH (10:30)
[2020-10-20] MEDS: DIVALPROEX SODIUM 500 MG TABLET E.C. PO SCH ×2 (10:30→22:42)
[2020-10-20 14:20] LABS: HEMATOCRIT 35.6 % (35.4-49); HEMOGLOBIN 11.9 GM/dL (11.7-16.9); MCH 29.5 pg (25.7-33.7); MCHC 33.3 g/dl (32.0-35.9); MEAN CELL VOLUME 88.5 fl (80-96); MEAN PLT VOLUME 8.1 fl (7.5-11.1); PLATELET COUNT 290 10^3/uL (134-434); RBC 4.02 M/mm3 (4.00-5.60); RDW 14.6 % (11.9-15.9); WHITE BLOOD COUNT 6.1 K/mm3 (4.0-10.0)
[2020-10-20 14:30] LABS: BLOOD UREA NITROGEN 13.2 mg/dL (7-18); CALCIUM 8.7 mg/dL (8.5-10.1)
[2020-10-20 14:31] LABS: ALBUMIN 3.1 g/dl (3.4-5.0)
[2020-10-20 14:35] LABS: BILIRUBIN,TOTAL 0.4 mg/dL (0.2-1); TOT PROT 6.8 g/dl (6.4-8.2)
[2020-10-20 14:38] LABS: CREATININE 0.9 mg/dL (0.55-1.3)
[2020-10-20] MEDS: ATORVASTATIN CA 10 MG TABLET (FP) PO SCH (22:42)
[2020-10-20] MEDS: MELATONIN 5 MG TABLETS PO SCH (23:04)
[2020-10-20] MEDS: LATANOPROST 0.005% OPHTH SOLN 2.5ML BOTTLE OU SCH (23:05)
[2020-10-20] MEDS: THIAMINE HCL 100 MG TABLET (FP) PO SCH (23:05)
[2020-10-21] MEDS: diazePAM 5 MG TABLET PO SCH ×2 (05:42→05:44)
[2020-10-21] MEDS: LEVOTHYROXINE NA 75 MCG TABLET (FP) PO SCH (06:43)
[2020-10-21 09:38] VITALS: BP 117/66; PULSE 72; TEMP 96.6
[2020-10-21] MEDS: PRENATAL VITAMINS W/ FOLIC ACID TABLET (FP) PO SCH (10:11)
[2020-10-21] MEDS: DIVALPROEX SODIUM 500 MG TABLET E.C. PO SCH (10:11)
[2020-10-21] MEDS: SERTRALINE HCL 50 MG TABLET (FP) PO SCH (10:11)
[2020-10-21] MEDS: NICOTINE 7 MG/24 HOURS TOPICAL PATCH TD SCH (10:13)
[2020-10-22] MEDS ORDERED: diazePAM 5 MG TABLET PO ONE (06:00)
== END 2020-10-21 11:38 | disposition home or self-care (01) | DRG 897 ==
LOC: YASAS 10:21 → Y3N 14:08
PROVIDERS: ADMIT Allergy & Immunology; ATTEND Allergy & Immunology
PROC: HZ2ZZZZ Detoxification Services for Substance Abuse Treatment (ICD-10-PCS; principal; 2020-10-18)
DX: F10.230 Alcohol dependence with withdrawal, uncomplicated (principal); F14.20 Cocaine dependence, uncomplicated; F17.210 Nicotine dependence, cigarettes, uncomplicated; F32.9 Major depressive disorder, single episode, unspecified; E78.5 Hyperlipidemia, unspecified; E03.9 Hypothyroidism, unspecified; H40.9 Unspecified glaucoma; G47.00 Insomnia, unspecified; K40.90 Unilateral inguinal hernia, without obstruction or gangrene, not specified as recurrent; Z86.59 Personal history of other mental and behavioral disorders; Z56.0 Unemployment, unspecified; Z59.0 Homelessness
CPT/HCPCS: 0031A; 36415; 80053; 80164; 85027; 86780; 91303; C9803; U0003; U0005

== ENCOUNTER 2020-12-02 12:19 | Inpatient (IN) | payer OTHER ==
[2020-12-02 13:53] VITALS: BMI 20.5
[2020-12-02] MEDS ORDERED: LORazepam 1 MG TABLET PO PRN (17:25)
[2020-12-02] MEDS ORDERED: METHOCARBAMOL 500 MG TABLET PO PRN (17:25)
[2020-12-02] MEDS ORDERED: NICOTINE 10 MG CARTRIDGE (INHALER) IH PRN (17:25)
[2020-12-02] MEDS ORDERED: MAGNESIUM CITRATE 300 ML BOTTLE PO PRN (17:25)
[2020-12-02] MEDS ORDERED: IBUPROFEN 400 MG TABLET (FP) PO PRN (17:25)
[2020-12-02] MEDS ORDERED: ACETAMINOPHEN 325 MG TABLET (FP) PO PRN ×2 (17:25)
[2020-12-02] MEDS ORDERED: MENTHOL/PHENOL 1 EACH UD MM PRN (17:25)
[2020-12-02] MEDS ORDERED: BISMUTH SUBSALICYLATE 524 MG/30 ML PO PRN (17:25)
[2020-12-02] MEDS ORDERED: MAGNESIUM HYDROX 2400MG/30ML ORAL SUSPENSION 30 ML CUP PO PRN (17:25)
[2020-12-02] MEDS ORDERED: ONDANSETRON *ODT* 4 MG TABLET SL PRN (17:25)
[2020-12-02] MEDS ORDERED: MAG HYDROX/AL HYDROX/SIMETH 30 ML UNIT-DOSE CUP PO PRN (17:25)
[2020-12-02] MEDS: hydrOXYzine PAMOATE 25 MG CAPSULE (FP) PO SCH ×2 (19:00→22:53)
[2020-12-02] MEDS: THIAMINE HCL 100 MG TABLET (FP) PO SCH (22:53)
[2020-12-02] MEDS: MELATONIN 5 MG TABLETS PO SCH (22:53)
[2020-12-02] MEDS: LORazepam 2 MG TABLET PO SCH (22:53)
[2020-12-03] MEDS: hydrOXYzine PAMOATE 25 MG CAPSULE (FP) PO SCH ×5 (06:36→23:07)
[2020-12-03] MEDS: LORazepam 2 MG TABLET PO SCH ×4 (06:36→23:06)
[2020-12-03] MEDS: PRENATAL VITAMINS W/ FOLIC ACID TABLET (FP) PO SCH (11:47)
[2020-12-03 13:45] LABS: HEMOGLOBIN 13.7 GM/dL (11.7-16.9); MCH 30.6 pg (25.7-33.7); MCHC 33.3 g/dl (32.0-35.9); MEAN CELL VOLUME 91.8 fl (80-96); MEAN PLT VOLUME 7.2 fl (7.5-11.1); PLATELET COUNT 335 10^3/uL (134-434); RBC 4.47 M/mm3 (4.00-5.60); RDW 15.4 % (11.9-15.9); WHITE BLOOD COUNT 4.7 K/mm3 (4.0-10.0)
[2020-12-03 14:16] LABS: ALBUMIN 3.3 g/dl (3.4-5.0); BLOOD UREA NITROGEN 11.7 mg/dL (7-18); CALCIUM 8.8 mg/dL (8.5-10.1)
[2020-12-03 14:21] LABS: BILIRUBIN,TOTAL 0.5 mg/dL (0.2-1); TOT PROT 7.1 g/dl (6.4-8.2)
[2020-12-03 15:04] LABS: HIV INTERPRETATION NEGATIVE (NEGATIVE)
[2020-12-03] MEDS: THIAMINE HCL 100 MG TABLET (FP) PO SCH (23:07)
[2020-12-03] MEDS: MELATONIN 5 MG TABLETS PO SCH (23:07)
[2020-12-04] MEDS: hydrOXYzine PAMOATE 25 MG CAPSULE (FP) PO SCH ×2 (06:51→10:15)
[2020-12-04] MEDS: LORazepam 1 MG TABLET PO SCH ×2 (06:51→10:15)
[2020-12-04 09:05] VITALS: BP 108/71; PULSE 85; TEMP 96.8
[2020-12-04] MEDS: PRENATAL VITAMINS W/ FOLIC ACID TABLET (FP) PO SCH (10:14)
[2020-12-05] MEDS ORDERED: LORazepam 0.5 MG TABLET PO PRN
[2020-12-05] MEDS ORDERED: LORazepam 0.5 MG TABLET PO SCH (05:00)
[2020-12-06] MEDS ORDERED: LORazepam 0.5 MG TABLET PO ONE (05:00)
== END 2020-12-04 12:32 | disposition left against medical advice (07) | DRG 894 ==
LOC: YASAS 12:19 → Y3N 17:44
PROVIDERS: ADMIT Allergy & Immunology; ATTEND Allergy & Immunology
PROC: HZ2ZZZZ Detoxification Services for Substance Abuse Treatment (ICD-10-PCS; principal; 2020-12-02)
DX: F10.230 Alcohol dependence with withdrawal, uncomplicated (principal); F14.20 Cocaine dependence, uncomplicated; F19.282 Other psychoactive substance dependence with psychoactive substance-induced sleep disorder; F11.10 Opioid abuse, uncomplicated; F12.20 Cannabis dependence, uncomplicated; F17.210 Nicotine dependence, cigarettes, uncomplicated; F19.24 Other psychoactive substance dependence with psychoactive substance-induced mood disorder; F31.9 Bipolar disorder, unspecified; E78.00 Pure hypercholesterolemia, unspecified; E03.9 Hypothyroidism, unspecified; K40.90 Unilateral inguinal hernia, without obstruction or gangrene, not specified as recurrent; M17.12 Unilateral primary osteoarthritis, left knee; M54.5 Low back pain; G89.29 Other chronic pain; H40.9 Unspecified glaucoma; H18.413 Arcus senilis, bilateral; Z59.0 Homelessness
CPT/HCPCS: 36415; 80053; 80164; 85027; 86780; 87389; 93005; 93010; C9803; U0003; U0005

== ENCOUNTER 2020-12-24 13:11 | Inpatient (IN) | payer OTHER ==
[2020-12-24 13:57] VITALS: BMI 20.3
[2020-12-24] MEDS ORDERED: diazePAM 5 MG TABLET PO ONE (14:56)
[2020-12-24] MEDS ORDERED: BISMUTH SUBSALICYLATE 524 MG/30 ML PO PRN (14:56)
[2020-12-24] MEDS ORDERED: hydrOXYzine PAMOATE 25 MG CAPSULE (FP) PO PRN (14:56)
[2020-12-24] MEDS ORDERED: MAGNESIUM HYDROX 2400MG/30ML ORAL SUSPENSION 30 ML CUP PO PRN (14:56)
[2020-12-24] MEDS ORDERED: MENTHOL/PHENOL 1 EACH UD MM PRN (14:56)
[2020-12-24] MEDS ORDERED: ONDANSETRON *ODT* 4 MG TABLET SL PRN (14:56)
[2020-12-24] MEDS ORDERED: diazePAM 5 MG TABLET PO PRN (14:56)
[2020-12-24] MEDS ORDERED: IBUPROFEN 400 MG TABLET (FP) PO PRN (14:56)
[2020-12-24] MEDS ORDERED: MAGNESIUM CITRATE 300 ML BOTTLE PO PRN (14:56)
[2020-12-24] MEDS ORDERED: METHOCARBAMOL 500 MG TABLET PO PRN (14:56)
[2020-12-24] MEDS ORDERED: NICOTINE 10 MG CARTRIDGE (INHALER) IH PRN (14:56)
[2020-12-24] MEDS ORDERED: MAG HYDROX/AL HYDROX/SIMETH 30 ML UNIT-DOSE CUP PO PRN (14:56)
[2020-12-24] MEDS ORDERED: ACETAMINOPHEN 325 MG TABLET (FP) PO PRN ×2 (14:56)
[2020-12-24] MEDS: diazePAM 5 MG TABLET PO SCH ×2 (19:04→23:26)
[2020-12-24] MEDS ORDERED: traZODone HCL 50 MG TABLET (FP) PO SCH (22:00)
[2020-12-24] MEDS: ATORVASTATIN CA 10 MG TABLET (FP) PO SCH (23:26)
[2020-12-24] MEDS: DIVALPROEX SODIUM 500 MG TABLET E.C. PO SCH (23:26)
[2020-12-24] MEDS: MELATONIN 5 MG TABLETS PO SCH (23:26)
[2020-12-24] MEDS: THIAMINE HCL 100 MG TABLET (FP) PO SCH (23:26)
[2020-12-25] MEDS: DIVALPROEX SODIUM 500 MG TABLET E.C. PO SCH ×3 (05:52→22:56)
[2020-12-25] MEDS: diazePAM 5 MG TABLET PO SCH ×4 (05:52→22:56)
[2020-12-25] MEDS: LEVOTHYROXINE NA 75 MCG TABLET (FP) PO SCH (07:00)
[2020-12-25] MEDS ORDERED: DORZOLAMIDE 2% HCL OPHTHALMIC SOLUTION 10 ML BOTTLE OD SCH (10:00)
[2020-12-25] MEDS ORDERED: LORATADINE 10 MG TABLET PO SCH (10:00)
[2020-12-25] MEDS ORDERED: CHOLECALCIFEROL (VIT D3) 1,000 UNIT (25 MCG) TABLET PO SCH (10:00)
[2020-12-25] MEDS ORDERED: PRENATAL VITAMINS W/ FOLIC ACID TABLET (FP) PO SCH (10:00)
[2020-12-25] MEDS ORDERED: SERTRALINE HCL 50 MG TABLET (FP) PO SCH (10:00)
[2020-12-25 11:22] LABS: HEMATOCRIT 39.4 % (35.4-49); HEMOGLOBIN 13.3 GM/dL (11.7-16.9); MCH 30.8 pg (25.7-33.7); MCHC 33.8 g/dl (32.0-35.9); MEAN CELL VOLUME 91.1 fl (80-96); MEAN PLT VOLUME 8.3 fl (7.5-11.1); PLATELET COUNT 350 10^3/uL (134-434); RBC 4.33 M/mm3 (4.00-5.60); RDW 15.3 % (11.9-15.9); WHITE BLOOD COUNT 5.6 K/mm3 (4.0-10.0)
[2020-12-25 11:35] LABS: ALBUMIN 3.6 g/dl (3.4-5.0)
[2020-12-25 11:36] LABS: BLOOD UREA NITROGEN 20.1 mg/dL (7-18)
[2020-12-25 11:37] LABS: CALCIUM 9.1 mg/dL (8.5-10.1)
[2020-12-25 11:41] LABS: CREATININE 1.1 mg/dL (0.55-1.3)
[2020-12-25 11:43] LABS: BILIRUBIN,TOTAL 0.2 mg/dL (0.2-1); TOT PROT 7.6 g/dl (6.4-8.2)
[2020-12-25 11:49] LABS: SYPHILIS W/ RPR CONF NON-REACTIVE (NONREACTIVE)
[2020-12-25 12:18] LABS: HIV INTERPRETATION NEGATIVE (NEGATIVE)
[2020-12-25] MEDS: ATORVASTATIN CA 10 MG TABLET (FP) PO SCH (22:56)
[2020-12-25] MEDS: THIAMINE HCL 100 MG TABLET (FP) PO SCH (22:56)
[2020-12-25] MEDS: MELATONIN 5 MG TABLETS PO SCH (22:56)
[2020-12-26] MEDS ORDERED: diazePAM 5 MG TABLET PO SCH (06:00)
[2020-12-26] MEDS: DIVALPROEX SODIUM 500 MG TABLET E.C. PO SCH (07:09)
[2020-12-26] MEDS: LEVOTHYROXINE NA 75 MCG TABLET (FP) PO SCH (07:09)
[2020-12-26 08:53] VITALS: BP 111/61; PULSE 63; TEMP 98.4
[2020-12-27] MEDS ORDERED: diazePAM 5 MG TABLET PO SCH (06:00)
[2020-12-28] MEDS ORDERED: diazePAM 5 MG TABLET PO ONE (06:00)
== END 2020-12-26 09:25 | disposition left against medical advice (07) | DRG 894 ==
LOC: YASAS 13:11 → Y3N 16:12
PROVIDERS: ADMIT Allergy & Immunology; ATTEND Allergy & Immunology
PROC: HZ2ZZZZ Detoxification Services for Substance Abuse Treatment (ICD-10-PCS; principal; 2020-12-24)
DX: F10.230 Alcohol dependence with withdrawal, uncomplicated (principal); F14.20 Cocaine dependence, uncomplicated; F19.282 Other psychoactive substance dependence with psychoactive substance-induced sleep disorder; F12.20 Cannabis dependence, uncomplicated; F17.210 Nicotine dependence, cigarettes, uncomplicated; E03.9 Hypothyroidism, unspecified; E78.5 Hyperlipidemia, unspecified; H40.9 Unspecified glaucoma; M54.5 Low back pain; G89.29 Other chronic pain; Z86.59 Personal history of other mental and behavioral disorders
CPT/HCPCS: 36415; 80053; 85027; 86780; 87389; C9803; U0003; U0005

== ENCOUNTER 2021-02-25 18:05 | Inpatient (IN) | payer OTHER ==
[2021-02-25 19:02] VITALS: BMI 19.8
[2021-02-25] MEDS ORDERED: MAG HYDROX/AL HYDROX/SIMETH 30 ML UNIT-DOSE CUP PO PRN (19:30)
[2021-02-25] MEDS ORDERED: NICOTINE POLACRILEX 2 MG GUM BUC PRN (19:30)
[2021-02-25] MEDS ORDERED: MAGNESIUM HYDROX 2400MG/30ML ORAL SUSPENSION 30 ML CUP PO PRN (19:30)
[2021-02-25] MEDS ORDERED: MENTHOL/PHENOL 1 EACH UD MM PRN (19:30)
[2021-02-25] MEDS ORDERED: ONDANSETRON *ODT* 4 MG TABLET SL PRN (19:30)
[2021-02-25] MEDS ORDERED: METHOCARBAMOL 500 MG TABLET PO PRN (19:30)
[2021-02-25] MEDS ORDERED: MAGNESIUM CITRATE 300 ML BOTTLE PO PRN (19:30)
[2021-02-25] MEDS ORDERED: BISMUTH SUBSALICYLATE 524 MG/30 ML PO PRN (19:30)
[2021-02-25] MEDS ORDERED: ACETAMINOPHEN 325 MG TABLET (FP) PO PRN ×2 (19:30)
[2021-02-25] MEDS ORDERED: diazePAM 5 MG TABLET PO PRN (19:34)
[2021-02-25] MEDS: MELATONIN 5 MG TABLETS PO SCH (22:01)
[2021-02-25] MEDS: diazePAM 5 MG TABLET PO SCH (22:02)
[2021-02-25] MEDS: THIAMINE HCL 100 MG TABLET (FP) PO SCH (22:02)
[2021-02-26] MEDS: IBUPROFEN 400 MG TABLET (FP) PO PRN ×2 (03:42→10:33)
[2021-02-26] MEDS: diazePAM 5 MG TABLET PO SCH ×4 (05:37→22:11)
[2021-02-26 10:31] LABS: CALCIUM 8.5 mg/dL (8.5-10.1)
[2021-02-26] MEDS: PRENATAL VITAMINS W/ FOLIC ACID TABLET (FP) PO SCH (10:31)
[2021-02-26 10:32] LABS: BLOOD UREA NITROGEN 15.1 mg/dL (7-18); HEMATOCRIT 36.3 % (35.4-49); HEMOGLOBIN 12.3 GM/dL (11.7-16.9); MCH 29.4 pg (25.7-33.7); MCHC 33.7 g/dl (32.0-35.9); MEAN CELL VOLUME 87.1 fl (80-96); MEAN PLT VOLUME 7.4 fl (7.5-11.1); PLATELET COUNT 325 10^3/uL (134-434); RBC 4.17 M/mm3 (4.00-5.60); RDW 14.4 % (11.9-15.9); WHITE BLOOD COUNT 4.2 K/mm3 (4.0-10.0)
[2021-02-26 10:35] LABS: CREATININE 1.1 mg/dL (0.55-1.3)
[2021-02-26 10:36] LABS: BILIRUBIN,TOTAL 0.2 mg/dL (0.2-1); TOT PROT 6.5 g/dl (6.4-8.2)
[2021-02-26] MEDS ORDERED: FLU VACC QS2021-22(6MOS UP)/PF 60 MCG/0.5 ML SYRINGE IM ONE (17:00)
[2021-02-26] MEDS ORDERED: PNEUMOC 13-VAL CONJ-DIP CRM/PF 0.5 ML DISP.SYRIN IM ONE (17:00)
[2021-02-26] MEDS: MELATONIN 5 MG TABLETS PO SCH (22:11)
[2021-02-26] MEDS: THIAMINE HCL 100 MG TABLET (FP) PO SCH (22:11)
[2021-02-27 05:31] VITALS: TEMP 97.8
[2021-02-27] MEDS ORDERED: diazePAM 5 MG TABLET PO SCH (06:00)
[2021-02-27 09:21] VITALS: PULSE 78
[2021-02-27 09:22] VITALS: BP 137/71
[2021-02-27] MEDS: PRENATAL VITAMINS W/ FOLIC ACID TABLET (FP) PO SCH (10:04)
[2021-02-27] MEDS ORDERED: FLU VACC QS2021-22(6MOS UP)/PF 60 MCG/0.5 ML SYRINGE IM ONE (12:00)
[2021-02-27] MEDS ORDERED: PNEUMOC 13-VAL CONJ-DIP CRM/PF 0.5 ML DISP.SYRIN IM ONE (12:00)
[2021-02-28] MEDS ORDERED: diazePAM 5 MG TABLET PO SCH (06:00)
[2021-03-01] MEDS ORDERED: diazePAM 5 MG TABLET PO ONE (06:00)
== END 2021-02-27 10:50 | disposition left against medical advice (07) | DRG 894 ==
LOC: YASAS 18:05 → Y6N 19:05
PROVIDERS: ADMIT Allergy & Immunology; ATTEND Allergy & Immunology
PROC: HZ2ZZZZ Detoxification Services for Substance Abuse Treatment (ICD-10-PCS; principal; 2021-02-25)
DX: F10.230 Alcohol dependence with withdrawal, uncomplicated (principal); F14.20 Cocaine dependence, uncomplicated; F19.282 Other psychoactive substance dependence with psychoactive substance-induced sleep disorder; F17.210 Nicotine dependence, cigarettes, uncomplicated; F31.9 Bipolar disorder, unspecified; F41.8 Other specified anxiety disorders; F43.10 Post-traumatic stress disorder, unspecified; E78.5 Hyperlipidemia, unspecified; E03.9 Hypothyroidism, unspecified; H26.9 Unspecified cataract; H18.413 Arcus senilis, bilateral; J30.9 Allergic rhinitis, unspecified; K21.9 Gastro-esophageal reflux disease without esophagitis; K40.90 Unilateral inguinal hernia, without obstruction or gangrene, not specified as recurrent; L21.9 Seborrheic dermatitis, unspecified; M17.12 Unilateral primary osteoarthritis, left knee; M54.50 Low back pain, unspecified; G89.29 Other chronic pain; Z62.810 Personal history of physical and sexual abuse in childhood; Z91.51 Personal history of suicidal behavior; Z59.00 Homelessness unspecified
CPT/HCPCS: 36415; 80053; 85027; 86780; C9803; U0003; U0005